=== PATIENT | male | born 2000 | race Caucasian/White ===

== ENCOUNTER 2020-04-16 13:37 | Emergency (ER) | payer MEDICAID ==
[~2020-04-16] VITALS: Ht 172.7 cm; Wt 86.0 kg
[~2020-04-16 13:37] MED LIST: HYDR-3964 PO; ONDA8TAB9 PO
[2020-04-16] MEDS ORDERED: LIDOcaine 1% W/epiNEPHrine 1:200,000 10ml vial IJ ONE (14:25)
[2020-04-16] MEDS ORDERED: bacitracin 15gm ointment TP ONE (14:25)
[2020-04-16 16:20] VITALS: BP 121/78
== END 2020-04-16 16:19 | disposition home or self-care (01) ==
LOC: ER 13:38
DX: S71.112A Laceration without foreign body, left thigh, initial encounter (principal); Z72.89 Other problems related to lifestyle; Z98.890 Other specified postprocedural states; Z79.899 Other long term (current) drug therapy; W26.0XXA Contact with knife, initial encounter; Y93.89 Activity, other specified; Y92.89 Other specified places as the place of occurrence of the external cause; Y99.8 Other external cause status
CPT/HCPCS: 12002; 99282